=== PATIENT | male | born 1955 | race Caucasian/White ===

== ENCOUNTER 2016-06-02 13:41 | Emergency (ER) | payer OTHER ==
--- NOTE | 2016-06-05 16:41 | ER ---
ADMIT: 06/02/2016 RM/LOC: ER [facility] MR#: [id number] [place], [place] [id number] TIARA GARRETT [address] [place] [address] Emergency Room Report SEX: M AGE: 60 : 1955 DATE: 06/02/2016 ADDENDUM: A 60-year-old white male coming in with wheezing, he had been here several times. He has some degree of COPD. Not a smoker. I gave him albuterol and actually gave him DuoNeb treatment, he was better with that. We did check his blood sugar. He thought it was high, it was 257+. That is fasting as well. He did respond to the DuoNeb. We did send him home with the prednisone 20 b.i.d. x5 days and gave him a script for albuterol inhaler as well. I advised him that he probably has some degree of COPD, that he probably has some degree of diabetes and that we have given him a followup with Dr. Tamez, [place] [facility], to be seen. These are chronic conditions that he is kind of procrastinated over the years he says and not really have them taken care of. He is better now. CONDITION ON DISCHARGE: Good. Vincenzo Bryan MD/ josel JOB #: [id number] CC: Vincenzo Bryan MD, Attending Physician Cirilo Tamez MD, Family Physician
== END 2016-06-02 14:26 | disposition home or self-care (01) ==
LOC: ER 13:41
DX: J20.9 Acute bronchitis, unspecified (principal); E11.9 Type 2 diabetes mellitus without complications; Z87.891 Personal history of nicotine dependence; Z79.82 Long term (current) use of aspirin; Z79.899 Other long term (current) drug therapy